=== PATIENT | male | born 1980 | race Two or more races ===

== ENCOUNTER 2021-08-20 16:11 | Emergency (ER) | payer MEDICAID ==
[~2021-08-20] VITALS: Ht 177.8 cm; Wt 75.3 kg
[2021-08-20] MEDS ORDERED: CEFTRIAXONE 1,000 MG IM ONE (16:30)
[2021-08-20 20:01] VITALS: BP 132/91
--- NOTE | 2021-08-20 20:01 | NUR ---
TASK RN: VS UPDATED.
--- NOTE | 2021-08-20 22:00 | NUR ---
not in lobby
--- NOTE | 2021-08-20 22:16 | NUR ---
not in lobby
--- NOTE | 2021-08-20 22:57 | NUR ---
not in lobby
== END 2021-08-20 22:59 | disposition left against medical advice (07) ==
LOC: ED 16:30
DX: Z20.2 Contact with and (suspected) exposure to infections with a predominantly sexual mode of transmission (principal)
CPT/HCPCS: 99281

== ENCOUNTER 2021-08-21 08:29 | Emergency (ER) | payer MEDICAID ==
[~2021-08-21] VITALS: Ht 172.7 cm; Wt 75.0 kg
--- NOTE | 2021-08-21 08:34 | NUR ---
NIL X 1
[2021-08-21 08:53] VITALS: BP 140/96
== END 2021-08-21 09:32 | disposition home or self-care (01) ==
LOC: ED 09:16
DX: Z00.00 Encounter for general adult medical examination without abnormal findings (principal)
CPT/HCPCS: 99281